=== PATIENT | female | born 1985 | race Caucasian/White ===

== ENCOUNTER 2017-11-21 16:16 | Inpatient (IN) ==
[2017-11-21] MEDS ORDERED: fentaNYL Citrate Inj 100 MCG/2 ML Ampul IV.PUSH PRN ×2 (17:25)
[2017-11-21] MEDS ORDERED: Oxytocin 30 Units/500ml Premix 30 UNITS/500 ML BAG IV.SIG ONE (17:25)
[2017-11-21] MEDS ORDERED: Naloxone Inj 0.4 MG/ML Vial IV.PUSH PRN (17:25)
[2017-11-21] MEDS ORDERED: Sod Chloride 0.9% Inj 1,000 ML IV.CONT PRN (17:25)
[2017-11-21] MEDS ORDERED: Sodium Chlor 0.9% Inj 500 ML IV.SIG PRN (17:25)
--- NOTE | 2017-11-21 17:25 | P.HPOB ---
History of Present Illness Primary Care Physician: Barry Stanford DO History of Present Illness: 32-year-old at 35+6 with estimated due date of December 20 confirmed by first trimester ultrasound presents to the emergency room with leakage of fluid that started around 5 AM this morning. Patient says that she thinks her water broke at 5 AM and she has continued to have leakage of fluid that is blood tinged in color. She confirms movements and irregular contractions. She was diagnosed with a UTI yesterday by her traffic agent and was started on Macrobid 100 mg twice daily. Her course is significant for low iron/ anemia. Her GBS status is unknown. OB history: 7 full-term vaginal deliveries, one vaginal delivery, one stillborn. Past medical history: Depression/anxiety Medications: Zoloft, vitamins, iron supplements, B12. Past surgical history: Negative Allergies: Penicillin Review of systems: Unremarkable. She denies any chest pain, shortness of breath , problems with urination or defecation leg pain. Medications and Allergies Allergies Allergy/AdvReac Type Severity Reaction Status Date / Time penicillin G AdvReac Mild Rash Unverified 10/23/16 23:58 Home Medications Medication Instructions Recorded Confirmed Type B12 11/21/17 History 11/21/17 History Zoloft 11/21/17 History Exam Vital signs: Vital Signs 11/21/17 16:42 11/21/17 16:45 11/21/17 16:55 Temperature 98.1 F Pulse Rate 112 H 108 H 109 H Respiratory Rate 17 Blood Pressure 140/91 H Narrative: GENERAL: Well-nourished, well-developed patient. SKIN: Warm and dry. HEAD: Normocephalic and atraumatic. EYES: No scleral icterus. No injection or drainage. CARDIOVASCULAR: Regular rate and rhythm without murmurs, gallops, or rubs. RESPIRATORY: Breath sounds equal bilaterally. No accessory muscle use. ABDOMEN/GI: Abdomen soft, non-tender, bowel sounds present, no rebound, no guarding Gravid to 35 weeks size Cervix: posterior Dilatation: 4 Effacement: 50 Station: -2 Presentation: cephalic Membranes: ruptured Assessment and Plan - Plan 32-year-old and 35+6 weeks presents to the emergency room with leakage of fluid that started at 5 AM this morning. irregular contractions. Positive movements. GBS status unknown. O+ Blood Type. Amnisure positive. Confirms rupture of membranes. -Cervical check: /-2 -Patient placed on [facility]/EFM. Continue to monitor. -Admit to labor and delivery for active labor. -Anticipate . -Rapid GBS sent. Start on Vancomycin. -Start on Pitocin. 03-11-29. -Type and Cross. -Patient would like minimal intervention and her delivery to be as natural as possible. -Discussed with Dr. Cardenas. Discharge Plan - Discharge Disposition Patient Disposition: 30 Still Patient - Physicians Team ED Provider: Myrna Cardenas V Primary Care Provider: Barry Stanford - Rxs /Orders / Referrals /Forms Prescriptions: No Action B12 Zoloft Referrals: Barry Stanford DO [Primary Care Provider] - See Instructions - Discharge Instructions Print Language: Guyanese
[2017-11-21] MEDS ORDERED: Oxytocin 30 Units/500ml Premix 30 UNITS/500 ML BAG IV.SIG PRN (17:26)
[2017-11-21] MEDS ORDERED: Citric Acid/Sodium Citrate Liq 30 ML UDC PO SCH (17:30)
[2017-11-21] MEDS ORDERED: Sodium Chlor 0.9% Inj 250 ML IV.SIG SCH (18:00)
[2017-11-21] MEDS ORDERED: Vancomycin Inj 1,000 MG in Sodium Chlor 0.9% Inj 250 ML IV.SIG SCH (18:00)
[2017-11-21] MEDS ORDERED: miSOPROStol 200 MCG Tablet ONE (18:03)
[2017-11-21 19:41] LABS: Baso % (Auto) 0.6 % (0.0-2.0); Eos # (Auto) 0.3 th/mm3 (0.0-0.4); Eos % (Auto) 4.1 % (0.0-4.0); Lymph # (Auto) 1.4 th/mm3 (1.0-4.8); Lymph % (Auto) 21.8 % (9.0-44.0); Mean Corpuscular HGB Conc 31.4 % (32.0-36.0); Mean Platelet Volume 7.7 fL (7.0-11.0); Mono # (Auto) 0.5 th/mm3 (0.0-0.9); Mono % (Auto) 8.3 % (0.0-8.0); Neut # (Auto) 4.1 th/mm3 (1.8-7.7); Neut % (Auto) 65.2 % (16.0-70.0); Platelet Count 226 th/mm3 (150-450); Red Blood Count 4.77 mil/mm3 (4.00-5.30); Red Cell Distribution Width 18.5 % (11.6-17.2); White Blood Count 6.3 th/mm3 (4.0-11.0)
[2017-11-22 03:12] LABS: Bilirubin,Urine Negative (Negative); Clarity,Urine Hazy (Clear); Color,Urine Amber (Yellw/Straw); Glucose,Urine (UA) Negative (Negative); Hyaline Casts,Urine 3 /lpf (0-3); Leukocyte Esterase,Urine Small (Negative); Mucus,Urine Moderate /lpf (Occasional); Nitrite,Urine Negative (Negative); Specific Gravity,Urine 1.033 (1.002-1.035); Squamous Epithelial Cell,Urine 3 /hpf (0-5); Urobilinogen,Urine 4 or Greater mg/dL (Less than 2)
[2017-11-22 03:16] LABS: Benzodiazepine Urine With Conf Neg (Neg)
[2017-11-22 03:19] LABS: Amphetamine Urine With Conf Pos (Neg)
[2017-11-22] MEDS ORDERED: fentaNYL 2MCG-Bupiv 0.125% Epi 150 ML EPIDURAL ONE (04:28)
[2017-11-22] MEDS ORDERED: Lidocaaine 1.5%/Epinephrine 1:200,000 PF Inj 5 ML Amp ONE (04:29)
[2017-11-22] MEDS ORDERED: Lidocaine PF 1% Inj 5 ML Vial ONE (04:30)
[2017-11-22] MEDS ORDERED: Methylergonovine Inj 0.2 MG/ML Ampul ONE ×2 (04:53→04:54)
[2017-11-22] MEDS ORDERED: Naloxone Inj 0.4 MG/ML Vial IV.PUSH PRN (05:01)
[2017-11-22] MEDS ORDERED: Acetaminophen 325 MG Tablet PO PRN (05:01)
[2017-11-22] MEDS ORDERED: Benzocaine 20% Top Spray 60 ML Can TOPICAL PRN (05:01)
[2017-11-22] MEDS ORDERED: Bisacodyl 10 MG Supp RECTAL PRN (05:01)
[2017-11-22] MEDS ORDERED: Zolpidem Tartrate 5 MG Tablet PO PRN (05:01)
[2017-11-22] MEDS ORDERED: Witch Hazel 50%/Glyderin 12.5% 40 Pad Jar RECTAL PRN (05:01)
--- NOTE | 2017-11-22 05:03 | P.OBDELI ---
Weeks Gestation: 35 Patient Started Active Labor: Yes Medical Induction of Labor: Yes Artificial Rupture of Membrane: No Anesthesia: None Episiotomy: none Vaginal Delivery: Normal, Spontaneous Presentation: Occiput posterior Nuchal Cord: None Delayed Cord Clamping (45 sec): Yes (1m 45s per FOB) Placenta: Spontaneous delivery, Intact, 3 vessel cord Laceration: None Estimated blood loss (mL): 300 : Male Infant Male A Delivery Date: 11/22/17 Infant Delivery Time: 04:48 Weight: 2.608 kg score (1 min): 8 score (5 min): 8 (ppx IM hemabate 250mcg and [place] cytotec 1000mcg placed)
[2017-11-22] MEDS: Senna/Docusate Sodium 8.6/50 MG Tablet PO SCH ×2 (10:29→23:17)
[2017-11-22] MEDS ORDERED: Diphtheria/Tetanus/Pertussis Vaccine Inj 0.5 ML Syringe IM ONE (16:00)
[2017-11-22] MEDS ORDERED: Measles/Mumps/Rubella Vaccine Inj 0.5 ML Vial SQ ONE (16:00)
[2017-11-22] MEDS: Oxytocin 30 Units/500ml Premix 30 UNITS/500 ML BAG IV.CONT PRN (22:40)
[2017-11-23] MEDS: Oxytocin 30 Units/500ml Premix 30 UNITS/500 ML BAG IV.CONT PRN (07:36)
[2017-11-23 08:16] LABS: Hematocrit 22.6 % (35.0-46.0); Hemoglobin 7.5 gm/dL (11.6-15.3)
[2017-11-23] MEDS ORDERED: Methylergonovine Inj 0.2 MG/ML Ampul IM ONE (08:30)
[2017-11-23] MEDS ORDERED: Tranexamic Acid Inj 1,000 MG in Sodium Chlor 0.9% Inj 100 ML IV.SIG SCH (09:00)
--- NOTE | 2017-11-23 09:28 | P.PNOB ---
Subjective Post day: 1 Interval history: Patient seen and examined this morning. AFVSS overnight. day #1. Pain well-controlled. Patient sleepy this morning however able to be aroused and able to answer questions. Patient had episode of mild hemorrhage this morning with slight drop in H/H. Nurse reported she had a large clot and had soaked passed throughout the night. This morning patient bleeding has stopped. Endorses dizziness and lightheadedness. Denies dysuria. No breast tenderness. No nausea or vomiting. Denies calf pain, shortness of breath, or cough. She otherwise has no other complaints or concerns this morning. Update: Went to discuss recommendation for blood transfusion of 2 units of packed low blood cells with patient. Informed by nurse the patient was having active chest pain. Patient examined she reported pressure like chest pain on left side of her chest radiating to back and left shoulder and arm. She also reported mild shortness of breath. Patient also noted to have cough. She reports she has had this cough for the past 3 months but has not gone to the hospital to further evaluation. Alert and oriented 3 and no other complaints. More awake compared to this morning. Reports she feels tired. Denies using any other substances/medications besides the ones that have been given in the hospital. Patient agreed with plan to transfuse 2 units of packed red blood cells. Reports she has had transfusions in the past. Objective Vital Signs/I&O: Vital Signs 11/22/17 20:00 11/23/17 08:03 Temperature 98.4 F Pulse Rate 91 H 78 Respiratory Rate 18 20 Blood Pressure 94/55 L 98/68 L Intake & Output 11/22/17 11/23/17 11/23/17 18:59 06:59 18:59 Intake Total 500 / 500 Balance 500 / 500 Intake: IV 500 / 500 Pitocin 30 Units/NS 500 ml 500 / 500 Premix 30 units In 500 ml @ 100 mls/hr IV.CONT UNSCH PRN Rx#: [id number] Result Diagrams: 11/23/17 07:51 Objective Remarks: GENERAL: Well-nourished, well-developed patient. awake CARDIOVASCULAR: Regular rate and rhythm without murmurs, gallops, or rubs. RESPIRATORY: Breath sounds equal bilaterally. No accessory muscle use. ABDOMEN/GI: Abdomen soft, non-tender. Fundus: Firm, non-tender at umbilicus. GENITOURINARY: Light locia, no blood noted on pad Neuro: AAOx3, no neuro deficits noted EXTREMITIES: No cyanosis or edema, non-tender, without signs of DVT. Medications and IVs: Active Medications Acetaminophen (Tylenol) 650 mg PO Q4H PRN PRN Reason: PAIN SCALE 1 TO 2 Al Hydroxide/Mg Hydroxide (Milk Of Magnesia Liq) 30 ml PO Q12H PRN PRN Reason: Mild Constipation Benzocaine (Americaine 20% Top [place]) 1 spray TOPICAL Q4H PRN PRN Reason: For Perineum Discomfort Bisacodyl (Dulcolax Supp) 10 mg RECTAL DAILY PRN PRN Reason: SEVERE CONSITIPATION Oxytocin (Pitocin 30 Units/Ns 500 Ml Premix) 30 units in 500 mls @ 2 mls/hr IV.SIG TITRATE PRN; Protocol PRN Reason: For induction of labor Oxytocin (Pitocin 30 Units/Ns 500 Ml Premix) 30 units in 500 mls @ 100 mls/hr IV.CONT UNSCH PRN PRN Reason: Heavy bleeding Last Admin: 11/23/17 07:36 Dose: 100 mls/hr Tranexamic Acid 1,000 mg/ (Sodium Chloride) 110 mls @ 200 mls/hr IV.SIG ONCE [facility] Stop: 11/23/17 15:00 Ibuprofen (Motrin) 800 mg PO Q8H PRN PRN Reason: For Cramping Last Admin: 11/22/17 23:14 Dose: 800 mg Lactulose (Lactulose Liq) 30 ml PO DAILY PRN PRN Reason: SEVERE CONSITIPATION Naloxone HCl (Narcan Inj) 0.1 mg IV.PUSH Q2M PRN PRN Reason: for opiate reversal Ondansetron HCl (Zofran Odt) 4 mg PO Q6H PRN PRN Reason: NAUSEA OR VOMITING Senna/Docusate Sodium (Reyna-Colace) 1 tab PO BID [facility] Last Admin: 11/22/17 23:17 Dose: Not Given Sennosides (Senokot) 17.2 mg PO Q12H PRN PRN Reason: Moderate Constipation Sodium Chloride (Ns Flush) 2 ml IV.FLUSH BID [facility] Last Admin: 11/23/17 09:14 Dose: Not Given Sodium Chloride (Ns Flush) 2 ml IV.FLUSH PRN PRN PRN Reason: FLUSH AFTER USING IV ACCESS Sodium Chloride (Ns Flush) 2 ml IV.FLUSH BID JORGE L Last Admin: 11/23/17 09:14 Dose: Not Given Sodium Chloride (Ns Flush) 2 ml IV.FLUSH PRN PRN PRN Reason: FLUSH AFTER USING IV ACCESS Witch Gillian/Glycerin (Tucks Pads) 1 applicatio RECTAL QID PRN PRN Reason: HEMORRHOIDS Zolpidem Tartrate (Ambien) 5 mg PO HS PRN PRN Reason: SLEEP Assessment and Plan - Plan 32 year old PPD#1. 1. Care - AFVSS - Bedrest at the moment - Motrin prn pain - Advised pelvic rest x 6 weeks - Will f/u with OB provider in 6 weeks 2. hemorrhage Patient with episode of mild hemorrhage this morning c/w oxytocin s/p IM hemabate 250mcg and [place] cytotec 1000mcg placed hemabate and tranexamic acid discontinued H&H dropped to 7.5/22.5 from plan to transfuse 2 units of packed red blood cells Follow-up posttransfusion H&H 3. Chest pain Patient with complaint of left-sided pressure-like chest pain radiating to left shoulder and arm and back Normal EKG negative troponin 1 Vital signs stable Titrate oxygen as needed to keep O2 saturations greater than 94% Follow-up chest x-ray Patient seen again 11 AM she reports chest pain is mild and only when she breathes and has improved, no other complaints 4. Asthma Albuterol inhaler as needed Discussed with Dr. Lopez
[2017-11-23] MEDS ORDERED: Sodium Chlor 0.9% Inj 250 ML IV.SIG SCH (10:00)
--- NOTE | 2017-11-23 11:28 | XR ---
EXAM DATE: 11/23/2017 11:26 AM EDT AGE/SEX: 32 years / Female INDICATIONS: Shortness of breath, cough and left, upper chest pain. CLINICAL DATA: This is the patient's initial encounter. Patient reports that signs and symptoms have been present for 2 days and indicates a pain score of 5/10. MEDICAL/SURGICAL HISTORY: Asthma. None. COMPARISON: No prior exams available for comparison. FINDINGS: A single AP view of the chest demonstrates the lungs to be symmetrically aerated without evidence of mass, infiltrate or effusion. The cardiomediastinal contours are unremarkable. Osseous structures a re intact. CONCLUSION: Negative examination. Electronically signed by: Jarod Porter MD 11/23/2017 11:27 AM EDT
--- NOTE | 2017-11-23 11:55 | ECG ---
Date Performed: 11/23/2017 Time Performed: 09:43:08 PTAGE: 32 years EKG: Sinus rhythm NORMAL ECG NO PREVIOUS TRACING DOCTOR: Josey Carranza Interpretating Date/Time 11/23/2017 11:52:53
[2017-11-23] MEDS ORDERED: Ketorolac Inj 30 MG/ML (IVP) Vial IV.PUSH ONE (15:52)
[2017-11-23] MEDS: Senna/Docusate Sodium 8.6/50 MG Tablet PO SCH ×2 (16:13→23:15)
[2017-11-23 20:04] LABS: Hematocrit 28.5 % (35.0-46.0); Hemoglobin 9.1 gm/dL (11.6-15.3)
--- NOTE | 2017-11-24 07:17 | P.PNOB ---
Subjective Post day: 2 Interval history: Patient seen and examined this morning. AFVSS overnight. day #2. Pain well-controlled. Patient bleeding has stopped. Endorses mild left-sided upper back pain. Denies dysuria. No breast tenderness. No nausea or vomiting. Denies calf pain, shortness of breath. She otherwise has no other complaints or concerns this morning. Patient reports that she does not have any chest pain or shortness of breath. She is currently doing well on room air. Patient was transfused 2 units of packed red blood cells yesterday. Denies any dizziness or lightheadedness this morning. Endorses chronic cough. Alert and oriented 3 and no other complaints. Objective Vital Signs/I&O: Vital Signs 11/23/17 08:03 11/23/17 09:35 11/23/17 11:50 Temperature 98.6 F 98.1 F Pulse Rate 78 76 66 Respiratory Rate 20 18 18 Blood Pressure 98/68 L 116/64 118/69 Pulse Oximetry 11/23/17 11:53 11/23/17 12:14 11/23/17 14:45 Temperature 98.1 F 98.2 F 98.0 F Pulse Rate 66 74 92 H Respiratory Rate 18 18 18 Blood Pressure 118/69 111/70 116/68 Pulse Oximetry 96 99 11/23/17 14:57 11/23/17 15:00 11/23/17 20:00 Temperature 98.0 F 98.0 F 98.1 F Pulse Rate 92 H 92 H 75 Respiratory Rate 18 18 18 Blood Pressure 116/68 116/68 106/61 Pulse Oximetry 97 11/24/17 00:20 Temperature Pulse Rate Respiratory Rate Blood Pressure Pulse Oximetry 99 Intake & Output 11/23/17 11/24/17 11/24/17 18:59 06:59 18:59 Intake Total 400 / 400 Balance 400 / 400 Intake: Intake (Blood Product) Amt 400 / 400 Rbc As-3 Leukoreduced Unit 0 / 0 [id number] Rbc As-3 Leukoreduced Unit 400 / 400 [id number] Result Diagrams: 11/23/17 19:56 Objective Remarks: GENERAL: Well-nourished, well-developed patient. CARDIOVASCULAR: Regular rate and rhythm without murmurs, gallops, or rubs. RESPIRATORY: Breath sounds equal bilaterally. No accessory muscle use. ABDOMEN/GI: Abdomen soft, non-tender. Fundus: Firm, non-tender at umbilicus. GENITOURINARY: Light bleeding. EXTREMITIES: No cyanosis or edema, non-tender, without signs of DVT. Medications and IVs: Active Medications Acetaminophen (Tylenol) 650 mg PO Q4H PRN PRN Reason: PAIN SCALE 1 TO 2 Al Hydroxide/Mg Hydroxide (Milk Of Magnesia Liq) 30 ml PO Q12H PRN PRN Reason: Mild Constipation Albuterol (Ventolin Hfa Inh) 2 puff INH Q6H PRN PRN Reason: SHORTNESS OF BREATH Benzocaine (Americaine 20% Top [place]) 1 spray TOPICAL Q4H PRN PRN Reason: For Perineum Discomfort Bisacodyl (Dulcolax Supp) 10 mg RECTAL DAILY PRN PRN Reason: SEVERE CONSITIPATION Oxytocin (Pitocin 30 Units/Ns 500 Ml Premix) 30 units in 500 mls @ 2 mls/hr IV.SIG TITRATE PRN; Protocol PRN Reason: For induction of labor Oxytocin (Pitocin 30 Units/Ns 500 Ml Premix) 30 units in 500 mls @ 100 mls/hr IV.CONT UNSCH PRN PRN Reason: Heavy bleeding Last Admin: 11/23/17 07:36 Dose: 100 mls/hr Ibuprofen (Motrin) 800 mg PO Q8H PRN PRN Reason: For Cramping Last Admin: 11/23/17 23:16 Dose: 800 mg Lactulose (Lactulose Liq) 30 ml PO DAILY PRN PRN Reason: SEVERE CONSITIPATION Naloxone HCl (Narcan Inj) 0.1 mg IV.PUSH Q2M PRN PRN Reason: for opiate reversal Ondansetron HCl (Zofran Odt) 4 mg PO Q6H PRN PRN Reason: NAUSEA OR VOMITING Senna/Docusate Sodium (Reyna-Colace) 1 tab PO BID JORGE L Last Admin: 11/23/17 23:15 Dose: Not Given Sennosides (Senokot) 17.2 mg PO Q12H PRN PRN Reason: Moderate Constipation Sertraline HCl (Zoloft) 25 mg PO DAILY JORGE L Sodium Chloride (Ns Flush) 2 ml IV.FLUSH BID JORGE L Last Admin: 11/23/17 09:14 Dose: Not Given Sodium Chloride (Ns Flush) 2 ml IV.FLUSH PRN PRN PRN Reason: FLUSH AFTER USING IV ACCESS Witch Gillian/Glycerin (Tucks Pads) 1 applicatio RECTAL QID PRN PRN Reason: HEMORRHOIDS Zolpidem Tartrate (Ambien) 5 mg PO HS PRN PRN Reason: SLEEP Last Admin: 11/23/17 23:15 Dose: 5 mg Assessment and Plan - Plan 32 year old PPD#2. 1. Care - AFVSS - Bedrest at the moment - Motrin prn pain - Received 1 dose of Toradol yesterday - Advised pelvic rest x 6 weeks - Will f/u with OB provider in 6 weeks 2. hemorrhage, resolved Patient with episode of mild hemorrhage 11/23 morning H&H dropped to 7.5/22.5 from s/p IM hemabate 250mcg and [place] cytotec 1000mcg placed hemabate and tranexamic acid discontinued Status post 2 units of packed red blood cells with appropriate response posttransfusion H&H 9.1/28.5 Vital signs stable 3. Chest pain, resolved Yesterday morning patient had complaints of left-sided pressure-like chest pain radiating to left shoulder and arm and back. Chest pain and shortness of breath had resolved. Normal EKG and negative troponin 1 Vital signs stable Titrate oxygen as needed to keep O2 saturations greater than 94%. Patient currently with O2 sats of 99 on room air. chest x-ray: Normal 4. Asthma Albuterol inhaler as needed Discussed with Dr. Lopez Discharge Planning: Anticipate discharge today
[2017-11-24] MEDS ORDERED: Sertraline 50 MG Tablet PO SCH (09:00)
[2017-11-24] MEDS: Senna/Docusate Sodium 8.6/50 MG Tablet PO SCH (10:12)
== END 2017-11-24 15:45 | disposition home or self-care (01) ==
LOC: HOBED 16:16 → H2E 17:51 → H1EA 11-22 07:26
PROVIDERS: ADMIT Obstetrics & Gynecology; ATTEND Obstetrics & Gynecology